=== PATIENT | female | born 1985 | race Caucasian/White ===

== ENCOUNTER 2019-08-24 03:40 | Emergency (ER) | payer MEDICAID ==
[~2019-08-24] VITALS: Ht 157.5 cm; Wt 50.0 kg
[2019-08-24] MEDS ORDERED: BACITRACIN ZINC OINT UDPKT TOP SCH (04:15)
[2019-08-24] MEDS ORDERED: IBUPROFEN 600MG TABLET PO SCH (04:15)
[2019-08-24 04:31] VITALS: BP 108/70
[2019-08-24] MEDS ORDERED: TETANUS, DIPHTHERIA, PERTUSSIS VAC/PF 0.5ML (>7YR OLD) IM ONE (05:00)
== END 2019-08-24 05:10 | disposition home or self-care (01) ==
LOC: ER 04:56
DX: S81.852A Open bite, left lower leg, initial encounter (principal); S81.851A Open bite, right lower leg, initial encounter; S41.151A Open bite of right upper arm, initial encounter; W54.0XXA Bitten by dog, initial encounter; Y93.89 Activity, other specified; Y92.89 Other specified places as the place of occurrence of the external cause; Y99.8 Other external cause status
CPT/HCPCS: 90471; 90715; 99283